=== PATIENT | male | born 1995 | race Two or more races ===

== ENCOUNTER 2017-01-11 14:25 | Emergency (ER) | payer MEDICAID ==
[~2017-01-11] VITALS: Ht 190.5 cm; Wt 99.8 kg
[2017-01-11 14:25] VITALS: BP 140/71
== END 2017-01-11 15:08 | disposition home or self-care (01) ==
LOC: ER 14:27
DX: M25.511 Pain in right shoulder (principal); J45.909 Unspecified asthma, uncomplicated
CPT/HCPCS: 99282; A4606; Z7610

== ENCOUNTER 2017-11-30 12:38 | Emergency (ER) | payer MEDICAID ==
[~2017-11-30] VITALS: Ht 190.5 cm; Wt 95.3 kg
--- NOTE | 2017-11-30 12:38 | NUR ---
FROM HOME WITH CC PT THINKS HE HAS HERNIA. NOTED BULGING TO L INGUINAL AREA. PAIN COMPLAINING OF PAIN WHEN TOUCHED . AOX4 , VSS , WILL CONTINUE TO MONITOR
[2017-11-30 13:21] LABS: APPEARANCE,URINE CLEAR (CLEAR); BILIRUBIN,URINE NEGATIVE (NEGATIVE); BLOOD, URINE NEGATIVE Ery/uL (NEGATIVE); COLOR,URINE YELLOW (YELLOW); KETONES,URINE NEGATIVE (NEGATIVE); LEUKOCYTE ESTERASE ,URINE NEGATIVE (NEGATIVE); NITRITE, URINE NEGATIVE (NEGATIVE); PROTEIN,URINE TRACE mg/dl (NEGATIVE); UGLUCOSE NEGATIVE (NEGATIVE)
[2017-11-30 13:30] LABS: BACTERIA,URINE None seen /HPF (None Seen); RBC,URINE NONE SEEN /HPF (0-2); SQUAMOUS EPITHELIAL CELL,UR Few /HPF (None Seen); WBC,URINE NONE SEEN /HPF (0-3)
[2017-11-30] MEDS ORDERED: CEFTRIAXONE 500 MG VIAL ONE (13:45)
[2017-11-30] MEDS ORDERED: AZITHROMYCIN 250 MG TABLET ONE (13:59)
[2017-11-30] MEDS ORDERED: CEFTRIAXONE 500 MG VIAL IM ONE (14:00)
[2017-11-30] MEDS ORDERED: AZITHROMYCIN 250 MG TABLET PO ONE (14:00)
--- NOTE | 2017-11-30 14:06 | NUR ---
Patient discharged to home in stable condition. Written and verbal after care instructions given. Patient verbalizes understanding of instruction. VSS , INSTRUCTED PT TO STAY 10-20 MINUTES TO CHECK IF THERE ANY REACTION TO ABX GIVEN VIA IM
[2017-11-30 14:13] VITALS: BP 142/55
== END 2017-11-30 14:31 | disposition home or self-care (01) ==
LOC: ER 12:41
DX: A64 Unspecified sexually transmitted disease (principal); J45.909 Unspecified asthma, uncomplicated
CPT/HCPCS: 81001; 96372; 99283; A4606; J0696; Z7610; 81000-TC